=== PATIENT | male | born 1940 | race Caucasian/White ===

== ENCOUNTER 2021-07-05 14:37 | Emergency (ER) | payer MEDICARE ==
[~2021-07-05] VITALS: Ht 170.2 cm; Wt 95.2 kg
--- NOTE | ~2021-07-05 | EKG ---
[facility] [address] [place], [place] [address] Draft EK completed, results pending confirmation PATIENT NAME: RADHA ACUNA Electrocardiogram DATE OF : 42 PHYSICIAN: PRELIMINARY REPORT #: [id number] REPORT IS CONFIDENTIAL AND NOT TO BE RELEASED WITHOUT AUTHORIZATION
[2021-07-05] MEDS ORDERED: LOSARTAN POTASS50 MG PO (22:04)
[2021-07-05] MEDS ORDERED: ZESTRIL20 MG PO (22:04)
[2021-07-05] MEDS ORDERED: METOPROLOL SUCC25 MG PO (22:05)
--- OUTSIDE RECORDS SUMMARY | 2021-07-05 22:26 | XMS ---
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 EDavid VISIT COUNT (12 MO.) [address] [address] JENNY Elizondo Aletha TOTAL 2 NOTE: Visits indicate total known visits. ED/UCC VISIT TRACKING (12 MO.) 07/05/2021 14:37 JENNY Goss TYPE: Emergency COMPLAINT: - SHOB 04/29/2021 21:53 [facility] TYPE: Emergency DIAGNOSES: - COVID-19 - Shortness of Breath INPATIENT VISIT TRACKING (12 MO.) No inpatient visits to display in this time frame [email or web address]
--- NOTE | 2021-07-06 08:06 | EKG ---
[facility] [address] [place] [address] Signed Normal sinus rhythm Nonspecific ST and T wave abnormality Abnormal ECG When compared with ECG of 05-JUL-2021 14:40, (Unconfirmed) Sinus rhythm has replaced Atrial flutter Confirmed by SARA PARHAM MD ([id number]) on 07/06/2021 8:06:51 AM Electronically Signed By: SARA PARHAM MD 07/06/21 0806 PATIENT NAME: RADHA ACUNA Electrocardiogram DATE OF : 42 PHYSICIAN: SARA PARHAM MD REPORT #: [id number] REPORT IS CONFIDENTIAL AND NOT TO BE RELEASED WITHOUT AUTHORIZATION
[2021-07-06] MEDS ORDERED: LORAZEPAM0.5 MG PO (18:59)
[2021-07-06] MEDS ORDERED: TRAZODONE HCL50 MG PO (18:59)
== END 2021-07-05 22:25 | disposition home or self-care (01) ==
LOC: ED 14:37
DX: R06.00 Dyspnea, unspecified (principal); I25.10 Atherosclerotic heart disease of native coronary artery without angina pectoris; J45.909 Unspecified asthma, uncomplicated; Z88.5 Allergy status to narcotic agent
CPT/HCPCS: 36415; 71045; 73502; 80053; 82803; 83880; 84484; 85025; 93005; 93010; 96374; 99285-25; J1940

== ENCOUNTER 2021-07-06 14:37 | Emergency (ER) | payer MEDICARE ==
[~2021-07-06] VITALS: Ht 170.2 cm; Wt 95.2 kg
[~2021-07-06 14:37] MED LIST: LOSARTAN POTASS50 MG PO; METOPROLOL SUCC25 MG PO; ZESTRIL20 MG PO
--- OUTSIDE RECORDS SUMMARY | 2021-07-06 14:45 | XMS ---
PreManage Notification: RADHA ACUNA Security Conference Planning Manager Events No recent Security Events currently on file CRITERIA MET - COVID-19 Positive Lab Results - [facility] - 2 Visits in 30 Days CARE PROVIDERS STAN BOYD [facility] Current PHONE: Unknown [facility] - Clinic/Center: [facility] Current PRISCILA \F\ [facility] PHONE: [phone] Lolly has no Care Guidelines for this patient. EDavid VISIT COUNT (12 MO.) [address] [place] [address] TOTAL 3 NOTE: Visits indicate total known visits. ED/C VISIT TRACKING (12 MO.) 07/06/2021 14:37 JENNY Goss TYPE: Emergency COMPLAINT: - SHOB 07/05/2021 14:37 JENNY [place] TYPE: Emergency COMPLAINT: - SHOB 04/29/2021 21:53 [facility] DIAGNOSES: - COVID-19 - Shortness of Breath INPATIENT VISIT TRACKING (12 MO.) No inpatient visits to display in this time frame [email or web address]
[2021-07-06] MEDS ORDERED: LORAZEPAM0.5 MG PO (18:59)
[2021-07-06] MEDS ORDERED: TRAZODONE HCL50 MG PO (18:59)
== END 2021-07-06 19:21 | disposition home or self-care (01) ==
LOC: ED 14:37
DX: F41.9 Anxiety disorder, unspecified (principal); J45.909 Unspecified asthma, uncomplicated; I25.10 Atherosclerotic heart disease of native coronary artery without angina pectoris; Z79.899 Other long term (current) drug therapy; Z88.5 Allergy status to narcotic agent
CPT/HCPCS: 96374; 99283-25; J2060